=== PATIENT | female | born 1940 | race Caucasian/White ===

== ENCOUNTER 2018-12-08 12:46 | Day surgery (SDC) | payer MEDICARE, OTHER ==
[~2018-12-08] VITALS: Ht 152.4 cm; Wt 56.4 kg
[2018-12-08] MEDS ORDERED: LISI5 (13:30)
[2018-12-08] MEDS ORDERED: LOVA40 (13:30)
[2018-12-08] MEDS ORDERED: METO25ER (13:31)
[2018-12-08] MEDS ORDERED: OMEP20ER (13:32)
[2018-12-08] MEDS ORDERED: Norco 10-325 T1 EACH (13:33)
== END 2018-12-08 14:53 | disposition home or self-care (01) ==
LOC: ORSCSDS 12:46
DX: Z12.11 Encounter for screening for malignant neoplasm of colon (principal); D12.0 Benign neoplasm of cecum; D12.2 Benign neoplasm of ascending colon; K57.30 Diverticulosis of large intestine without perforation or abscess without bleeding; Z86.010 Personal history of colon polyps; Z83.71 Family history of colonic polyps; E11.9 Type 2 diabetes mellitus without complications; I10 Essential (primary) hypertension; K21.9 Gastro-esophageal reflux disease without esophagitis; Z79.899 Other long term (current) drug therapy
CPT/HCPCS: 82947; 88305; J2704; J7120